=== PATIENT | female | born 1990 | race Caucasian/White ===

== ENCOUNTER 2018-05-06 09:49 | Emergency (ER) | payer OTHER ==
[~2018-05-06] VITALS: Ht 182.9 cm; Wt 99.8 kg
--- NOTE | 2018-05-06 10:26 | PHYS DOC ---
Past History Past Medical History: Migraines Smoking: Non-smoker Adult General Chief Complaint Chief Complaint: CHEST PAIN HPI HPI Patient is a 28-year-old female presents to the emergency department for evaluation. She states that she woke this morning with a migraine headache, similar to her prior migraine headaches, although the headache has since improved. However, she states that she had about a 45 minute period where she was having left-sided chest pressure, with radiation towards her left shoulder. She had some slight worsening of her discomfort with deep breathing, but did not have any pain with exertion, and her pain was not improved by rest. She did have some lightheadedness. She has not had any nausea, vomiting, or diaphoresis. She has not had any significant shortness of breath. She does take oral contraceptive pills. She has no family history of cardiac history no personal history of hypertension, diabetes, hyperlipidemia. She does, however, suffer from obesity. Assuming a negative troponin, her HEART score would be 1. There are no alleviating, or exacerbating factors to her symptoms. Review of Systems Review of Systems Constitutional: Denies fever or chills [] Eyes: Denies change in visual acuity, redness, or eye pain [] HENT: Denies nasal congestion or sore throat [] Respiratory: Denies cough or shortness of breath [] Cardiovascular: No additional information not addressed in HPI [] GI: Denies abdominal pain, nausea, vomiting, bloody stools or diarrhea [] : Denies dysuria or hematuria . Patient is currently on her menses.[] Musculoskeletal: Denies back pain or joint pain [] Integument: Denies rash or skin lesions [] Neurologic: Denies headache, focal weakness or sensory changes [] Endocrine: Denies polyuria or polydipsia [] All other systems were reviewed and found to be within normal limits, except as documented in this note. Current Medications Current Medications Current Medications Medications (Trade) Dose Ordered Sig/Omaira Start Time Stop Time Status Last Admin Dose Admin Aspirin (Children'S Aspirin) 324 mg 1X ONCE 05/06/18 10:30 05/06/18 10:31 UNV Physical Exam Physical Exam PHYSICAL EXAM: CONSTITUTIONAL: Well developed, well nourished HEAD: normocephalic, atraumatic EENT: PERRL, EOMI. Conjunctivae normal color, sclerae non-icteric; moist mucous membranes. NECK: Supple, non-tender; no meningismus. LUNGS: Lungs CTA, breathing even and unlabored. Normal air movement. HEART: Regular rate and rhythm, no murmur CHEST: No deformity; non-tender ABDOMEN: The abdomen is soft, and non-tender, no masses or bruits. EXTREM: Normal ROM; no deformity, no calf tenderness. Normal pulses palpable in all extremities. There is no pedal edema. SKIN: No rash; no diaphoresis NEURO: Alert; normal speech and cognition; CN's grossly intact; strength grossly intact without focal deficit. BACK: No CVA TTP. EKG EKG [Normal sinus rhythm a rate of 76 beats for minute, normal axis, normal intervals. There are no acute ischemic ST/T changes.] Radiology/Procedures Radiology/Procedures [PROCEDURE: PORTABLE CHEST 1V Single view of the chest. 05/06/2018 10:23 AM Indication: CHEST PAIN Comparison: None Findings: There is no focal consolidation. There is no pleural effusion or pneumothorax. The cardiomediastinal silhouette and pulmonary vasculature are within normal limits. No acute osseous abnormalities are seen. Impression: No evidence of acute cardiopulmonary process. ] Course & Med Decision Making Course & Med Decision Making Pertinent Labs and Imaging studies reviewed. (See chart for details) [11:40 AM:Patient remains stable. I discussed test results, the need for close follow-up, and return precautions.] Dragon Disclaimer Dragon Disclaimer This electronic medical record was generated, in whole or in part, using a voice recognition dictation system. Departure Departure: Impression: Primary Impression: Chest pain Disposition: HOME, SELF-CARE Condition: STABLE Referrals: PCP,NO (PCP) Patient Instructions: Chest Pain (Nonspecific), Migraine Headache LYNDSEY GUAJARDO MD May 06, 2018 10:25
--- NOTE | 2018-05-06 11:07 | RAD ---
Single view of the chest. 05/06/2018 10:23 AM Indication: CHEST PAIN Comparison: None Findings: There is no focal consolidation. There is no pleural effusion or pneumothorax. The cardiomediastinal silhouette and pulmonary vasculature are within normal limits. No acute osseous abnormalities are seen. Impression: No evidence of acute cardiopulmonary process. Electronically signed by: Adelso Van MD (05/06/2018 11:04 AM) [id number]
[2018-05-06 11:11] LABS: BASO # 0.1 x10^3/uL (0.0-0.2); BASO % 1 % (0-3); EOS # 0.2 x10^3/uL (0.0-0.7); EOS % 3 % (0-3); HEMATOCRIT 40.2 % (36.0-47.0); HEMOGLOBIN 13.5 g/dL (12.0-15.5); LYMPH % 29 % (24-48); MEAN CORPUSCULAR HEMOGLOBIN 30 pg (25-35); MEAN CORPUSCULAR HGB CONC 34 g/dL (31-37); MEAN CORPUSCULAR VOLUME 89 fL (79-100); MONO # 0.4 x10^3/uL (0.0-1.1); MONO % 5 % (0-9); NEUT # 4.2 x10^3uL (1.8-7.7); NEUT % 62 % (31-73); PLATELET COUNT 279 x10^3/uL (140-400); WHITE BLOOD COUNT 6.9 x10^3/uL (4.0-11.0)
[2018-05-06] MEDS ORDERED: ASPIRIN 81 MG TAB.CHEW PO ONE (11:15)
[2018-05-06 11:28] LABS: BILIRUBIN,URINE NEG (NEG); CLARITY,URINE HAZY; COLOR,URINE YELLOW; GLUCOSE,URINE NEG (NEG)
[2018-05-06 11:29] LABS: BACTERIA,URINE MOD /HPF (0-FEW); NITRITE,URINE NEG (NEG); RBC,URINE RARE /HPF (0-2); SQUAMOUS EPITHELIAL CELL,UR MANY /LPF; UROBILINOGEN,URINE 0.2 mg/dL (0.2 mg/dL)
[2018-05-06 11:36] LABS: ALBUMIN 3.8 g/dL (3.4-5.0); ALBUMIN/GLOBULIN RATIO 1.1 (1.0-1.7); ALK PHOS 61 U/L (46-116); ALT (SGPT) 19 U/L (14-59); ANION GAP 7 (6-14); AST (SGOT) 16 U/L (15-37); BLOOD UREA NITROGEN 11 mg/dL (7-20); BUN/CREATININE RATIO 12 (6-20); CALCIUM 8.9 mg/dL (8.5-10.1); CARBON DIOXIDE 26 mmol/L (21-32); CHLORIDE 106 mmol/L (98-107); CREATININE 0.9 mg/dL (0.6-1.0); GFR 75.1; GLUCOSE 100 mg/dL (70-99); LIPASE 107 U/L (73-393); SODIUM 139 mmol/L (136-145); TOTAL BILIRUBIN 0.3 mg/dL (0.2-1.0); TOTAL PROTEIN 7.2 g/dL (6.4-8.2)
[2018-05-06 11:37] LABS: POTASSIUM 4.9 mmol/L (3.5-5.1)
[2018-05-06] MEDS ORDERED: ACETAMINOPHEN 500 MG TABLET PO ONE (11:50)
[2018-05-06 11:58] VITALS: BP 116/78
--- NOTE | 2018-05-06 12:53 | EKG ---
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
== END 2018-05-06 12:02 | disposition home or self-care (01) ==
LOC: ER 09:49
DX: R07.89 Other chest pain (principal); R42 Dizziness and giddiness; G43.909 Migraine, unspecified, not intractable, without status migrainosus
CPT/HCPCS: 36415; 71045; 80053; 81001; 82553; 83690; 84484; 85025; 85379; 85610; 87086; 93005; 99285-25

== ENCOUNTER 2018-07-01 12:50 | Emergency (ER) | payer OTHER ==
[~2018-07-01] VITALS: Ht 182.9 cm; Wt 99.8 kg
[2018-07-01] MEDS ORDERED: IBUP800T19 PO (13:38)
--- NOTE | 2018-07-01 13:39 | PHYS DOC ---
Past History Past Medical History: Migraines Past Surgical History: Cholecystectomy, Tonsillectomy Smoking: Non-smoker Alcohol Use: Occasionally Drug Use: None Adult General Chief Complaint Chief Complaint: BACK PAIN OR INJURY [facility] Patient is a 28 year old female who presents with complaining of low back pain and injury. Patient states she was at work and was hit on lower back with a heavy metal door and since then has had intermittent episodes of bilateral lower extremity numbness that lasts for few seconds and repeated frequently. Patient denies urinary and bowel incontinence, nausea and vomiting, , other injuries. Patient rated her back pain as a moderate pain and doesn't want to have pain medication in ER. Review of Systems Review of Systems Constitutional: Denies fever or chills [] Eyes: Denies change in visual acuity, redness, or eye pain [] HENT: Denies nasal congestion or sore throat [] Respiratory: Denies cough or shortness of breath [] Cardiovascular: No additional information not addressed in HPI [] GI: Denies abdominal pain, nausea, vomiting, bloody stools or diarrhea [] : Denies dysuria or hematuria [] Musculoskeletal: Reports back pain, denies joint pain [] Integument: Denies rash or skin lesions [] Neurologic: Denies headache, focal weakness, reports sensory changes [] Endocrine: Denies polyuria or polydipsia [] All other systems were reviewed and found to be within normal limits, except as documented in this note. Allergies Allergies Allergies Coded Allergies Type Severity Reaction Last Updated Verified Penicillins Allergy Intermediate rash 05/06/18 Yes Sulfa (Sulfonamide Antibiotics) Allergy Intermediate 05/06/18 Yes erythromycin base Allergy Intermediate sob 05/06/18 Yes Physical Exam Physical Exam Constitutional: Well developed, well nourished, mild distress, non-toxic appearance. [] HENT: Normocephalic, atraumatic Eyes: PERRLA, EOMI, conjunctiva normal, no discharge. [] Neck: Normal range of motion, no tenderness, supple, no stridor. [] Cardiovascular:Heart rate regular rhythm, no murmur [] Lungs & Thorax: Bilateral breath sounds clear to auscultation [] Skin: Warm, dry, no erythema, no rash. [] Back: No midline tenderness, no contusion, no CVA tenderness. [] Extremities: No tenderness, no cyanosis, no clubbing, ROM intact, no edema. [] Neurologic: Alert and oriented X 3, normal motor function, normal sensory function without sensory loss in lower extremity, no focal deficits noted. [] Psychologic: Affect normal, judgement normal, mood normal. [] Current Patient Data Vital Signs Vital Signs Date Time Temp Pulse Resp B/P (MAP) Pulse Ox O2 Delivery O2 Flow Rate FiO2 07/01/18 12:53 98.1 63 18 98 Room Air EKG EKG [address] [address] IMAGING REPORT Signed PATIENT: NIELS FARRAR ACCOUNT: [id number] : 1990 LOCATION: ER AGE: 28 SEX: F EXAM STATUS: REG ER ORD. PHYSICIAN: JESUSITA MARTIN MD REASON: injury PROCEDURE: LUMBAR SPINE 2-3V 3 view lumbar spine 07/01/2018 CLINICAL INDICATION: Back pain. COMPARISON: None. FINDINGS: There are 5 nonrib-bearing lumbar-type vertebral bodies of the 1st considered L1. Vertebral body heights are maintained. Mild L5-S1 disc degeneration with disc space narrowing endplate sclerosis and marginal osteophyte formation. Normal lumbar alignment. Right upper quadrant cholecystectomy clips. IMPRESSION: No radiographic evidence of acute lumbar spine abnormality. Electronically signed by: Saadia Leo MD (07/01/2018 1:54 PM) [id number] DICTATED AND SIGNED BY: SAADIA LEO MD DATE: 07/01/18 1353 CC: JESUSITA MARTIN MD; PCP,NO ~ Radiology/Procedures Radiology/Procedures [] Course & Med Decision Making Course & Med Decision Making Pertinent Imaging studies reviewed. (See chart for details) Evaluation of patient in ER showed 28-year-old female patient with injury to her back and complaining of intermittent episodes of paresthesias . Patient had unremarkable physical and neuro exam with negative lumbar x-ray for fracture. Patient didn't want to have pain medication in ER.. Dragon Disclaimer Dragon Disclaimer This electronic medical record was generated, in whole or in part, using a voice recognition dictation system. Departure Departure: Impression: Primary Impression: Injury of lumbar spine Additional Impression: Paresthesias Disposition: HOME, SELF-CARE (at 1334) Condition: STABLE Referrals: PCP,NO (PCP) Patient Instructions: Back Pain, Adult, Paresthesia Additional Instructions: Drink plenty of liquids Follow-up with your primary care physician in 3-5 days Return to ER if not getting better Apply ice on the affected area Scripts Ibuprofen (IBUPROFEN) 800 Mg Tablet 1 TAB PO TID for pain, #30 TAB Prov: JESUSITA MARTIN MD 07/01/18 Problem Qualifiers JESUSITA MARTIN MD Jul 01, 2018 13:39
[2018-07-01 13:50] VITALS: BP 120/58
--- NOTE | 2018-07-01 13:57 | RAD ---
3 view lumbar spine 07/01/2018 CLINICAL INDICATION: Back pain. COMPARISON: None. FINDINGS: There are 5 nonrib-bearing lumbar-type vertebral bodies of the 1st considered L1. Vertebral body heights are maintained. Mild L5-S1 disc degeneration with disc space narrowing endplate sclerosis and marginal osteophyte formation. Normal lumbar alignment. Right upper quadrant cholecystectomy clips. IMPRESSION: No radiographic evidence of acute lumbar spine abnormality. Electronically signed by: Arnaud Leo MD (07/01/2018 1:54 PM) [id number]
== END 2018-07-01 13:58 | disposition home or self-care (01) ==
LOC: ER 12:50
DX: S39.92XA Unspecified injury of lower back, initial encounter (principal); R20.2 Paresthesia of skin; G43.909 Migraine, unspecified, not intractable, without status migrainosus; Z90.49 Acquired absence of other specified parts of digestive tract; Z88.0 Allergy status to penicillin; Z88.2 Allergy status to sulfonamides; Z88.1 Allergy status to other antibiotic agents; W22.8XXA Striking against or struck by other objects, initial encounter; Y93.89 Activity, other specified; Y92.89 Other specified places as the place of occurrence of the external cause; Y99.8 Other external cause status
CPT/HCPCS: 72100; 99283